=== PATIENT | female | born 1990 | race Caucasian/White ===

== ENCOUNTER 2018-12-07 01:24 | Outpatient (CLI) | payer BC, SELFPAY ==
[2018-12-07 10:38] LABS: TSH (W/Ref FT4) 2.38 uIU/mL (0.358-3.74)
[2018-12-07 17:43] LABS: Estradiol 14 pg/ml
[2018-12-10 09:01] LABS: FSH 4.9 mIU/ml; Prolactin 14.1 ng/ml
[2018-12-10 09:19] LABS: LH 5.2 mIU/ml
[2018-12-10 16:12] LABS: Antimullerian Hormone 3.7 ng/mL (0.9-9.5)
== END 2018-12-07 01:44 ==
PROVIDERS: PCP Nurse Practitioner Family; Visit Provider Obstetrics & Gynecology Gynecology
DX: Z31.9 Encounter for procreative management, unspecified (principal)
CPT/HCPCS: 36415; 82670; 83001; 83002; 83520; 84146; 84443

== ENCOUNTER 2018-12-13 00:57 | Outpatient (CLI) | payer BC, SELFPAY ==
[2018-12-13 18:02] LABS: Estradiol 78 pg/ml
[2018-12-14 09:54] LABS: FSH 6.2 mIU/ml; LH 8.8 mIU/ml
== END 2018-12-13 01:17 ==
PROVIDERS: PCP Nurse Practitioner Family; Visit Provider Obstetrics & Gynecology Gynecology
DX: Z31.9 Encounter for procreative management, unspecified (principal)
CPT/HCPCS: 36415; 82670; 83001; 83002

== ENCOUNTER 2019-12-26 11:33 | Outpatient (CLI) | payer BC, SELFPAY ==
[2019-12-26 14:09] LABS: HCG Quant, Pregnancy < 1 mIU/mL (1-3)
== END 2019-12-26 11:53 ==
PROVIDERS: PCP Nurse Practitioner Family; Visit Provider Obstetrics & Gynecology Gynecology
DX: N91.2 Amenorrhea, unspecified (principal)
CPT/HCPCS: 36415; 84702

== ENCOUNTER 2020-01-14 02:02 | Outpatient (CLI) | payer BC, SELFPAY ==
--- NOTE | 2020-01-14 12:30 | DI.US_ITS ---
EXAM: US PELVIS TRANSVAGINAL CLINICAL HISTORY: L adenexal pain R10.2 PELVIC AND PERINEAL PAIN TECHNIQUE: Ultrasound performed using standard protocol. COMPARISON: HEART ULTRASOUND GRP from 10/19/2011 FINDINGS: Pelvic ultrasound was performed transabdominally and transvaginally. Limited scanning of the kidneys is unremarkable. No free fluid identified in the cul-de-sac. There is an approximately 28 millimeters in greatest diameter posterior right fundal uterine fibroid. Otherwise uterus is unremarkable in appearance with an 8 millimeter thick homogeneous endometrial s tripe. Unremarkable follicular appearance of the left ovary. Right ovary contains 25 millimeter in diameter simple cyst presumably representing a functional cyst. Otherwise right ovary is unremarkable. IMPRESSION: Small presumed functional right ovarian cyst. Right posterior fundal 28 millimeter uterine fibroid. DATA REPOSITORY:
== END 2020-01-14 02:22 ==
PROVIDERS: PCP Nurse Practitioner Family; Visit Provider Nurse Practitioner Women's Health
DX: R10.2 Pelvic and perineal pain (principal); D25.9 Leiomyoma of uterus, unspecified; N83.291 Other ovarian cyst, right side
CPT/HCPCS: 76830; 76856

== ENCOUNTER 2020-02-20 02:10 | Outpatient (CLI) | payer BC, SELFPAY ==
--- NOTE | 2020-02-20 14:00 | DI.RAD_ITS ---
EXAM: RF HYSTEROSALPINGOGRAM CLINICAL HISTORY: evaluate patency of fallopian tubes,PROCREATIVE TREATMENT,Z31.9 TECHNIQUE: 2D and realtime digital imaging was performed. CONTRAST MATERIAL: Water soluble contrast was administered. COMPARISON: No exams were available for comparison FINDINGS: Fluoroscopically-guided hysterosalpingogram. The cervical opening was cannulated by Dr. Pederson. Th en under fluoroscopic guidance, water-soluble contrast was injected in a retrograde fashion. The uterus fills normally, with no evidence of contour abnormality, filling defect, septum, stricture , mass, or bicornuate configuration. The bilateral uterine tubes are normal and patent with normal ra pid spillage of contrast into the peritoneum. IMPRESSION: Normal hysterosalpingogram.
--- NOTE | 2020-02-20 14:46 | OPPNE_ITS ---
DATE: FEBRUARY 20, 2020 HPI (In Radiology) hysterosalpingogram Aggravating or associated factors: Pt desires . Plan HSG today Description of procedure. After written informed consent was obtained bivalve speculum was placed in the vagina and the cervix cleansed with Betadine. An HSG catheter was successfully introduced into the uterine cavity and the balloon inflated. Then under fluoroscopic guidance, water-soluble contrast was injected in a retrograde fashion. The uterus fills normally, with no evidence of contour abnormality, filling defect, septum, stricture, mass, or bicornuate configuration. The bilateral uterine tubes are normal and patent with normal rapid spillage of contrast into the peritoneum. At the completion of the procedure the instruments removed and the patient vagina and she was held off of the exam table. I reviewed the findings with the patient she tolerated the procedure well.
== END 2020-02-20 02:30 ==
PROVIDERS: PCP Nurse Practitioner Family; Visit Provider Obstetrics & Gynecology Gynecology
DX: Z31.49 Encounter for other procreative investigation and testing (principal)
CPT/HCPCS: 58340; 76831; 74740

== ENCOUNTER 2020-05-20 17:59 | Outpatient (REF) | payer BC, SELFPAY ==
[2020-05-22 03:02] LABS: COVID-19 RT-PCR UVMMC Result Negative (Negative)
== END 2020-05-20 18:19 ==
LOC: NCHCN 17:59
PROVIDERS: PCP Nurse Practitioner Family; Visit Provider Nurse Practitioner Family
DX: J02.9 Acute pharyngitis, unspecified (principal)
CPT/HCPCS: U0003

== ENCOUNTER 2020-11-26 00:44 | Outpatient (CLI) | payer BC, SELFPAY ==
--- NOTE | 2020-11-26 | DI.US_ITS ---
EXAM: US PELVIS TRANSVAGINAL CLINICAL HISTORY: FOLLICLE MEASUREMENTS FOR IUI,INFERTILITY TECHNIQUE: Ultrasound of the pelvis was performed both transabdominal and transvaginal. COMPARISON: US US PELVIS TRANSVAGINAL from 01/14/2020 FINDINGS: UTERUS: Measures 8.2 cm length x 3 cm AP x 5 cm wide. Again noted is a solitary uterine fibroid towards the right of the fundus present measuring 3.4 x 2.8 x 3.2 centimetres, slightly increased in size from prior measurement 1 year ago. Endometrial thickness measures 4 mm. There is no fluid in the endometrial canal. CERVIX: There are no obvious nabothian cysts. Contains multiple follicular cysts. RIGHT OVARY: Measures 3.5 x 2.2 x 2.5 cm cm Contains 17 follicles, the largest measuring 15 x 14 x 12 millimeters. LEFT OVARY: Measures 3.2 x 2.6 x 2.6 cm Contains 32 follicles, the largest measuring 14 x 13 x 16 millimeters. CUL-DE-SAC: No free fluid evident. IMPRESSION: 1. There is a single uterine fibroid towards the right of the fundus with measurements as above, slig htly larger than the December 2019 measurements. 2. Multiple ovarian follicles as described above. 3. No free fluid evident in the adnexal regions and cul-de-sac. DATA REPOSITORY: Contains multiple follicles
== END 2020-11-26 01:04 ==
PROVIDERS: PCP Nurse Practitioner Family; Visit Provider Obstetrics & Gynecology
DX: D25.9 Leiomyoma of uterus, unspecified (principal); N97.8 Female infertility of other origin
CPT/HCPCS: 76830; 76856

== ENCOUNTER 2021-06-09 03:14 | Outpatient (CLI) | payer BC, SELFPAY ==
[2021-06-09 15:27] LABS: TSH 2.07 uIU/mL (0.36-3.74)
[2021-06-10 09:44] LABS: Hepatitis C Ab w Rflx HCV PCR Negative (Negative)
[2021-06-10 09:50] LABS: HIV-1/2 Ag & Ab Screen Negative (Negative)
[2021-06-10 10:09] LABS: Hep B Core Antibody Negative (Negative)
[2021-06-10 10:23] LABS: Syphilis Serology (RPR) Negative (Negative)
[2021-06-10 10:43] LABS: Varicella IgG Antibody Positive (See Note)
[2021-06-10 10:45] LABS: Measles IgG Antibody Negative (See Note)
[2021-06-10 15:05] LABS: Chlamydia Result Negative (Negative); GC Result Negative (Negative)
[2021-06-11 09:01] LABS: Hepatitis B Surface Ag Negative (Negative)
[2021-06-11 10:29] LABS: CMV Ab, IgM Negative (Negative)
== END 2021-06-09 03:15 | disposition home or self-care (01) ==
LOC: LBO 03:14
PROVIDERS: Visit Provider Obstetrics & Gynecology
DX: E28.2 Polycystic ovarian syndrome (principal); Z11.3 Encounter for screening for infections with a predominantly sexual mode of transmission; Z11.4 Encounter for screening for human immunodeficiency virus [HIV]; Z11.59 Encounter for screening for other viral diseases; Z11.8 Encounter for screening for other infectious and parasitic diseases; Z01.83 Encounter for blood typing
CPT/HCPCS: 86704; 86706; 86787; 86803; 86900; 86901; 87340; 87389; 87491; 87591; 84443; 86592; 86644; 86645; 86765

== ENCOUNTER 2021-07-23 09:54 | Outpatient (REF) | payer BC, SELFPAY ==
--- NOTE | 2021-07-23 09:40 | PAPFT_PTH ---
PATIENT: Brooklyn Bowers LOC: [facility] U#:[id number] AGE/SX: 30/F ROOM: RE07/23/[address]: FRANCISCA Monten[place] : 1990 BED: DIS: 07/23/2021 SPEC #: [id number] RECD: 07/23/21 11:30 STATUS: KANE REJevon #: [id number] KIMBERLY: 07/23/21 09:[address]: Maddie Carranza DEPT: [facility] Cytology RECD BY: Angie Cid Tissues: 1 - CX/ENDOCX FOR PAP SMEARS Procedures: PAP THIN PREP/UVM Screening HPV DNA PROBE Comments: [id number]
== END 2021-07-23 09:55 | disposition home or self-care (01) ==
LOC: LBN 09:54
PROVIDERS: Visit Provider Nurse Practitioner Family
DX: Z12.4 Encounter for screening for malignant neoplasm of cervix (principal); Z11.51 Encounter for screening for human papillomavirus (HPV)
CPT/HCPCS: 88142; 87624

== ENCOUNTER 2021-07-26 11:25 | Outpatient (REF) | payer BC, SELFPAY ==
[2021-07-28 15:35] LABS: COVID-19 RT-PCR UVMMC Result Negative (Negative)
== END 2021-07-26 11:26 | disposition home or self-care (01) ==
LOC: LBN 11:25
PROVIDERS: Visit Provider Nurse Practitioner Family
DX: Z20.822 Contact with and (suspected) exposure to COVID-19 (principal); J06.9 Acute upper respiratory infection, unspecified
CPT/HCPCS: U0003

== ENCOUNTER 2023-04-27 03:13 | Outpatient (CLI) | payer OTHER, SELFPAY ==
[2023-04-27 13:43] LABS: HCG Quant, Pregnancy < 1 mIU/mL (1-3)
== END 2023-04-27 03:14 | disposition home or self-care (01) ==
PROVIDERS: Visit Provider Obstetrics & Gynecology Gynecology
DX: N91.2 Amenorrhea, unspecified (principal)
CPT/HCPCS: 36415; 84702

== ENCOUNTER 2023-05-06 13:25 | Emergency (ER) | payer OTHER, SELFPAY ==
[2023-05-06 13:29] VITALS: BP 135/100; PULSE 87; RESP 18; TEMP 37.2; O2SAT 99
--- NOTE | 2023-05-06 14:00 | DI.RAD_ITS ---
Exam(s) XR FEMUR RT EXAM: XR FEMUR RT CLINICAL HISTORY: Trauma- thigh pain. TECHNIQUE: 2D digital imaging was performed. COMPARISON: No exams were available for comparison FINDINGS: Four views No evidence of hip nor femur fracture. Bone density normal. No osseous lesions. Prominent right kn ee joint effusion noted. IMPRESSION: No femur fracture. There is a right knee joint effusion. This signifies a probable internal derange ment. DATA REPOSITORY: RADIATION DOSE DELIVERED:
--- NOTE | 2023-05-06 14:00 | DI.RAD_ITS ---
Exam(s) XR KNEE RT 3V AP,LAT,SANDY EXAM: XR KNEE RT 3V AP,LAT,SANDY CLINICAL HISTORY: Trauma- knee pain. TECHNIQUE: 2D digital imaging was performed. COMPARISON: No exams were available for comparison FINDINGS: 3 views No evidence of acute fracture but there is a large joint effusion signifying internal derangement. T ibial plateau appears intact. No joint space narrowing. No osteochondral defects. No osseous lesio ns. IMPRESSION: No acute osseous findings but there is a large joint effusion signifying probable internal derangemen t. Appropriate follow-up recommended. DATA REPOSITORY: RADIATION DOSE DELIVERED:
[2023-05-06] MEDS: HYDROcodone 5/Acetaminophen 325 TAB PO (14:34)
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
--- NOTE | 2023-05-06 15:48 | DI.VRAD_ITS ---
PROCEDURE INFORMATION: Exam: XR Right Femur Exam date and time: 05/06/2023 2:48 PM Age: 32 years old Clinical indication: Pain; Thigh; Right TECHNIQUE: Imaging protocol: Radiologic exam of the right femur. Views: 2 views. COMPARISON: CR XR KNEE RT 3V AP,LAT,SANDY 05/06/2023 2:47 PM FINDINGS: Bones/joints: Bone density is appropriate. Bony alignment is anatomic. No evidence for fracture. Knee effusion noted. Soft tissues: Unremarkable. IMPRESSION: Knee effusion. Dictated and Authenticated by: Valentine Benoit MD. Ordering:KIMMIE Cm MD
--- NOTE | 2023-05-06 15:48 | DI.VRAD_ITS ---
PROCEDURE INFORMATION: Exam: XR Right Knee Exam date and time: 05/06/2023 2:47 PM Age: 32 years old Clinical indication: Pain; Knee; Right TECHNIQUE: Imaging protocol: Radiologic exam of the right knee. Views: 3 views. COMPARISON: No relevant prior studies available. FINDINGS: Bones/joints: There is a large joint effusion. Bone density is appropriate. Bony alignment is anatomic. No evidence for fracture. Soft tissues: Normal. IMPRESSION: Large joint effusion. Dictated and Authenticated by: Valentine Benoit MD. Ordering:KIMIME Cm MD
== END 2023-05-06 16:23 | disposition home or self-care (01) ==
PROVIDERS: Emergency Provider Nurse Practitioner Family; PCP Nurse Practitioner Family
DX: M25.469 Effusion, unspecified knee (principal); S89.91XA Unspecified injury of right lower leg, initial encounter; W17.89XA Other fall from one level to another, initial encounter
CPT/HCPCS: 73552; 73562; 81025; 99284; 99283

== ENCOUNTER 2023-06-12 02:52 | Outpatient (CLI) | payer OTHER, SELFPAY ==
--- NOTE | 2023-06-12 07:11 | DI.MRI_ITS ---
Exam(s) MR LOWER JOINT RT WO EXAM: MR LOWER JOINT RT WO CLINICAL HISTORY: R KNEE PAIN-? MENISCUS TEAR LATERAL,INTERNAL DERANGEMENT,INJURY,M23.91,. TECHNIQUE: Multiplanar multisequence MRI was performed. COMPARISON: CR,XR XR KNEE RT 3V AP,LAT,SANDY from 05/06/2023 FINDINGS: The examination is limited due to patient motion artifact. BONES: There is a posterior lateral tibial plateau fracture. No significant depression is seen. Mar row edema is noted about the fracture. JOINTS: Articular cartilage is unremarkable. There is a small amount of fluid in the joint space. TENDONS: Extensor mechanism: Unremarkable. Medial retinaculum: Unremarkable. Lateral retinaculum: Unremarkable. Popliteus: Unremarkable. MUSCLES: Unremarkable. MENISCI: The medial meniscus is unremarkable. The lateral meniscus is unremarkable. SOFT TISSUES: There is mild edema seen anterior to the patellar ligament. LIGAMENTS: Anterior Cruciate: Unremarkable. Posterior Cruciate: There is mild hyperintense signal seen at the femoral insertion of the posterior cruciate ligament. Medial Collateral:Unremarkable. Lateral Collateral: Unremarkable. OTHER: IMPRESSION: 1. Nondepressed fracture of the posterior aspect of the lateral tibial plateau. 2. Mild hyperintense signal seen at the femoral insertion of the posterior cruciate ligament which ma y represent a small tear. 3. No evidence of a meniscal tear. 4. Examination limited by patient motion artifact. DATA REPOSITORY:
== END 2023-06-12 03:12 ==
LOC: DI 02:53
PROVIDERS: PCP Nurse Practitioner Family; Visit Provider Student in an Organized Health Care Education/Training Program
DX: S89.91XA Unspecified injury of right lower leg, initial encounter; S82.154A Nondisplaced fracture of right tibial tuberosity, initial encounter for closed fracture; X58.XXXA Exposure to other specified factors, initial encounter
CPT/HCPCS: 73721

== ENCOUNTER 2023-07-18 10:27 | Outpatient (REF) | payer OTHER, SELFPAY ==
[2023-07-18 17:58] LABS: Hemoglobin A1C 5.5 % (<5.7)
[2023-07-18 18:27] LABS: Anion Gap 9.8 mmol/L (3-11); BUN 20 mg/dL (7-18); CO2 25.2 mmol/L (21.0-32.0); CREATININE 0.7 mg/dL (0.55-1.02); Calculated LDL 137 mg/dL (<100); Chloride 104 mmol/L (98-107); Cholesterol 206 mg/dL (<200); Estimated GFR 116.31 (mL/min/1.73m2); Glucose 118 mg/dL (74-106); HDL Cholesterol 43 mg/dL (40-60); Sodium 139 mmol/L (136-145); TSH (W/Ref FT4) 2.05 uIU/mL (0.36-3.74); Triglyceride 130 mg/dL (<150)
== END 2023-07-18 10:28 | disposition home or self-care (01) ==
LOC: NCHCN 10:27
PROVIDERS: PCP Nurse Practitioner Family; Visit Provider Nurse Practitioner Family
DX: Z00.00 Encounter for general adult medical examination without abnormal findings (principal); F41.8 Other specified anxiety disorders; R03.0 Elevated blood-pressure reading, without diagnosis of hypertension; Z13.220 Encounter for screening for lipoid disorders; Z13.1 Encounter for screening for diabetes mellitus; E66.01 Morbid (severe) obesity due to excess calories
CPT/HCPCS: 80048; 80061; 83036; 84443

== ENCOUNTER 2023-07-18 14:58 | Outpatient (CLI) | payer OTHER, SELFPAY ==
--- NOTE | 2023-07-18 14:45 | DI.RAD_ITS ---
Exam(s) XR KNEE RT 2V AP,LAT EXAM: XR KNEE RT 2V AP,LAT CLINICAL HISTORY: right tibial plateau f/u. TECHNIQUE: 2D digital imaging was performed of the right knee. Two views obtained. AP and lateral views were obtained. COMPARISON: CR,XR XR KNEE RT 3V AP,LAT,SANDY from 05/06/2023 MR MR LOWER JOINT RT WO from 06/12/2023 FINDINGS: BONES: There is no change in alignment of the lateral tibial plateau. The lateral tibial plateau fra cture was best appreciated on the MRI of the knee. No depression is seen. No bony destructive lesio n is seen. JOINTS: The knee is normally aligned. No joint effusion is seen. SOFT TISSUE: Normal. IMPRESSION: No acute abnormality. There is no depression seen of the lateral tibial plateau fracture identified on the MRI from 06/12/2023. DATA REPOSITORY: RADIATION DOSE DELIVERED:
== END 2023-07-18 14:59 | disposition home or self-care (01) ==
LOC: DIORT 15:00
PROVIDERS: PCP Nurse Practitioner Family; Visit Provider Student in an Organized Health Care Education/Training Program
DX: S82.121D Displaced fracture of lateral condyle of right tibia, subsequent encounter for closed fracture with routine healing (principal); X58.XXXD Exposure to other specified factors, subsequent encounter
CPT/HCPCS: 73560

== ENCOUNTER 2023-11-01 04:46 | Outpatient (CLI) | payer OTHER, SELFPAY ==
[2023-11-02 11:02] LABS: Kit/Specimen SENT
== END 2023-11-01 04:47 ==
PROVIDERS: PCP Nurse Practitioner Family; Visit Provider Chiropractor Neurology
DX: Z00.00 Encounter for general adult medical examination without abnormal findings (principal)
CPT/HCPCS: 36415

== ENCOUNTER 2023-11-10 21:29 | Outpatient (CLI) | payer OTHER, SELFPAY ==
[2023-11-15 17:30] LABS: Antimullerian Hormone 4.2 ng/mL (0.58-8.1)
== END 2023-11-10 21:30 | disposition home or self-care (01) ==
LOC: LBO 21:37
PROVIDERS: PCP Nurse Practitioner Family; Visit Provider Obstetrics & Gynecology Gynecology
DX: N91.0 Primary amenorrhea (principal); Z31.89 Encounter for other procreative management
CPT/HCPCS: 36415; 83520

== ENCOUNTER 2024-04-10 05:04 | Outpatient (CLI) | payer OTHER, SELFPAY ==
[2024-04-10 13:25] LABS: Kit/Specimen SENT
== END 2024-04-10 05:05 | disposition home or self-care (01) ==
LOC: LBO 05:08
PROVIDERS: PCP Nurse Practitioner Family; Visit Provider Chiropractor Neurology
DX: Z00.00 Encounter for general adult medical examination without abnormal findings (principal)
CPT/HCPCS: 36415

== ENCOUNTER 2024-09-12 03:32 | Outpatient (CLI) | payer OTHER, SELFPAY ==
[2024-09-12 07:53] LABS: Kit/Specimen SENT
== END 2024-09-12 03:33 | disposition home or self-care (01) ==
LOC: LBO 03:32
PROVIDERS: PCP Nurse Practitioner Family; Visit Provider Chiropractor Neurology
DX: Z00.00 Encounter for general adult medical examination without abnormal findings (principal)
CPT/HCPCS: 36415

== ENCOUNTER 2024-09-30 15:24 | Emergency (ER) | payer OTHER, SELFPAY ==
[2024-09-30 15:27] VITALS: BP 111/79; PULSE 92; RESP 18; TEMP 36.8; O2SAT 98
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
== END 2024-09-30 17:22 | disposition home or self-care (01) ==
LOC: ER 17:28
PROVIDERS: Emergency Provider Student in an Organized Health Care Education/Training Program; PCP Nurse Practitioner Family
DX: S61.211A Laceration without foreign body of left index finger without damage to nail, initial encounter (principal); W26.0XXA Contact with knife, initial encounter
CPT/HCPCS: 12001